=== PATIENT | female | born 1990 | race Two or more races ===

== ENCOUNTER 2016-10-24 12:02 | Emergency (ER) | payer OTHER ==
--- NOTE | 2016-10-24 13:25 | CT ---
Exam: CT head without contrast COMPARISON: None INDICATION: Slipped getting out of the shower one day ago, and fell hitting her head on the toilet seat. TECHNIQUE: CT examination of the head was obtained without contrast. Finding: Soft tissue/scalp hematoma is noted over the forehead. No underlying fracture is identified. The visualized paranasal sinuses are well aerated. There is no acute intracranial hemorrhage. There is no abnormal intra or extra-axial fluid collection. There is no edema, mass effect or midline shift. Ventricles are normal in size. IMPRESSION: No acute intracranial abnormality. Soft tissue hematoma over the forehead without underlying fracture. Report was uploaded to the EMR at 1320 hours 10/24/2016.
== END 2016-10-24 14:05 | disposition home or self-care (01) ==
LOC: ED 12:02
DX: S06.0X1A Concussion with loss of consciousness of 30 minutes or less, initial encounter (principal); W01.198A Fall on same level from slipping, tripping and stumbling with subsequent striking against other object, initial encounter; Y93.E1 Activity, personal bathing and showering; Y92.002 Bathroom of unspecified non-institutional (private) residence as the place of occurrence of the external cause; Y99.8 Other external cause status; E66.9 Obesity, unspecified